=== PATIENT | female | born 1955 | race Hispanic/Latino ===

== ENCOUNTER 2018-01-06 12:36 | Emergency (ER) | payer OTHER ==
--- NOTE | 2018-01-06 13:57 | RAD REPORT ---
EXAM DESCRIPTION: RAD - Chest Pa And Lat (2 Views) - 01/06/2018 1:52 pm CLINICAL HISTORY: Fever and cough. COMPARISON: None. FINDINGS: The lungs are clear. The heart is upper limit of normal in size. No displaced fractures. IMPRESSION: No acute or concerning finding suspected.
--- NOTE | 2018-01-06 16:32 | ER ---
Nurse's Notes [facility] Name: Shantell Kenny Age: 62 yrs Sex: Female : 1955 Arrival Date: 01/06/2018 Time: 12:40 Bed 25 Private MD: Diagnosis: Influenza due to other identified influenza virus;Low back pain Presentation: 01/06 13:09 Presenting complaint: Patient states: I have a pain in my back for a few days that goes lk1 down my leg. I have had fever for 3 days and I have a cough. I feel congested except I can breath. I have horrible body aches. Transition of care: patient was not received from another setting of care. Onset of symptoms was January 03, 2018. Initial Sepsis Screen: Does the patient meet any 2 criteria? No. Patient's initial sepsis screen is negative. Does the patient have a suspected source of infection? No. Patient's initial sepsis screen is negative. Care prior to arrival: None. 13:09 Method Of Arrival: Ambulatory lk1 13:09 Acuity: JAKOB 3 lk1 13:14 Initial Sepsis Screen: Does the patient meet any 2 criteria? HR > 90 bpm. lk1 Triage Assessment: 13:11 General: Appears in no apparent distress. Behavior is calm, cooperative, appropriate lk1 for age. Pain: Complains of pain in low back area Pain radiates to right leg and left leg Pain currently is 8 out of 10 on a pain scale. Neuro: Level of Consciousness is awake, alert, obeys commands, Oriented to person, place, time, situation, Gait is steady, Speech is normal, Facial symmetry appears normal. Respiratory: Airway is patent Respiratory effort is even, unlabored, Respiratory pattern is regular, symmetrical. Respiratory: Reports cough that is non-productive. Musculoskeletal: Swelling absent. Historical: - Allergies: 13:11 No Known Allergies; lk1 - PMHx: 13:11 breast cancer; lk1 - PSHx: 13:11 bilateral bunion removal; Lumpectomy; laprascopic abdominal surgery; Appendectomy; lk1 - Immunization history:: Adult Immunizations up to date. - Social history:: Smoking status: Patient/guardian denies using tobacco. Screenin:34 Abuse screen: Denies threats or abuse. Nutritional screening: No deficits noted. mb3 Tuberculosis screening: No symptoms or risk factors identified. Fall Risk None identified. Assessment: 15:32 General: Appears in no apparent distress. comfortable, well groomed, Behavior is calm, mb3 cooperative, appropriate for age. Pain: Complains of pain in back Pain radiates to back of right leg. Neuro: No deficits noted. Cardiovascular: No deficits noted. Heart tones S1 S2 present Capillary refill < 3 seconds. Respiratory: Reports cough that is non-productive, Airway is patent Respiratory effort is even, unlabored, Respiratory pattern is regular, symmetrical, Breath sounds are clear bilaterally. GI: No signs and/or symptoms were reported involving the gastrointestinal system. : No signs and/or symptoms were reported regarding the genitourinary system. EENT: No signs and/or symptoms were reported regarding the EENT system. Musculoskeletal: No signs and/or symptoms reported regarding the musculoskeletal system. Capillary refill < 3 seconds, Range of motion: intact in all extremities. Vital Signs: 13:12 BP 124 / 73; Pulse 109; Resp 15; Temp 99.2(O); Pulse Ox 97% on R/A; Weight 63.5 kg (R); lk1 Height 5 ft. 2 in. (157.48 cm) (R); Pain 8/10; 16:40 BP 126 / 80; Pulse 106; Resp 20; Pulse Ox 98% on R/A; mb3 13:12 Body Mass Index 25.61 (63.50 kg, 157.48 cm) lk1 ED Course: 12:40 Patient arrived in ED. sb2 13:10 Triage completed. lk1 13:14 Arm band placed on right wrist. lk1 13:50 X-ray completed. Patient tolerated procedure well. Patient moved to radiology. jb2 13:51 Chest Pa And Lat (2 Views) XRAY In Process Unspecified. EDMS 15:01 Killian Bennett, ANA is Primary Nurse. mb3 15:12 Flash Eller PA is PHCP. cp 15:12 Raghu Montes MD is Attending Physician. cp 15:34 Patient has correct armband on for positive identification. Bed in low position. Call mb3 light in reach. Side rails up X 1. 16:41 No provider procedures requiring assistance completed. Patient did not have IV access mb3 during this emergency room visit. Administered Medications: No medications were administered Outcome: 16:31 Discharge ordered by . cp 16:41 Discharged to home ambulatory. mb3 16:41 Condition: stable 16:41 Discharge instructions given to patient, Instructed on discharge instructions, follow up and referral plans. medication usage, Demonstrated understanding of instructions, follow-up care, medications, Prescriptions given X 3. 16:42 Patient left the ED. mb3 Addendum: 01/10/2018 16:18 Addendum: Culture Results: Positive urine culture. Patient was not prescribed i w antibiotics at discharge. Report given to MICHAEL for further evaluation and then to food service helper for follow up with patient. Phone call Attempt #1 pt has no urinary s/s, no further action needed. Signatures: Dispatcher [employer] EDMS Rodrigue Ashley jb2 Ritu Sarah, RN RN iw Flash Eller PA PA Shikha Villanueva, ANA RN lk1 Mary Ellen Rojas sb2 Killian Bennett RN RN mb3 Corrections: (The following items were deleted from the chart) 01/06 13:50 13:50 X-ray completed. Portable x-ray completed in exam room. Patient tolerated jb2 procedure well. jb2
--- NOTE | 2018-01-06 16:33 | EDPHYS ---
Physician Documentation [facility] Name: Shantell Kenny Age: 62 yrs Sex: Female : 1955 Arrival Date: 01/06/2018 Time: 12:40 Bed 25 Private MD: ED Physician Raghu Montes HPI: 01/06 15:15 This 62 yrs old Female presents to ER via Ambulatory with complaints of Low cp Back Pain, Fever, Cough. 15:15 The patient presents with pain that is acute, with no known mechanism of injury. The cp symptoms are located in the low back. 15:15 Onset: The symptoms/episode began/occurred 3 day(s) ago. Associated signs and symptoms: cp Pertinent positives: fever, cough, Pertinent negatives: abdominal pain, chest pain, dysuria, headache, incontinence, numbness, tingling, urinary retention, weakness. 15:15 The pain does not radiate. cp Historical: - Allergies: 13:11 No Known Allergies; lk1 - PMHx: 13:11 breast cancer; lk1 - PSHx: 13:11 bilateral bunion removal; Lumpectomy; laprascopic abdominal surgery; Appendectomy; lk1 - Immunization history:: Adult Immunizations up to date. - Social history:: Smoking status: Patient/guardian denies using tobacco. ROS: 15:25 Eyes: Negative for injury, pain, redness, and discharge. cp 15:25 Constitutional: Positive for body aches, chills, Negative for fever, poor PO intake. 15:25 ENT: Negative for drainage from ear(s), ear pain, sore throat, difficulty swallowing, difficulty handling secretions. 15:25 Cardiovascular: Negative for chest pain, edema, palpitations. 15:25 Respiratory: Positive for cough, Negative for shortness of breath, wheezing. 15:25 Abdomen/GI: Negative for abdominal pain, nausea, vomiting, and diarrhea, anorexia, black/tarry stool, rectal bleeding. 15:25 Back: Positive for pain at rest, pain with movement, of the low back area. 15:25 : Negative for urinary symptoms. 15:25 Skin: Negative for cellulitis, rash. 15:25 Neuro: Negative for altered mental status, headache, numbness, weakness. 15:25 All other systems are negative. Exam: 15:27 Head/Face: Normocephalic, atraumatic. cp 15:27 Constitutional: The patient appears in no acute distress, alert, awake, non-diaphoretic, non-toxic, well developed, well nourished. 15:27 Eyes: Periorbital structures: appear normal, Conjunctiva: normal, no exudate, no injection, Sclera: no appreciated abnormality, Lids and lashes: appear normal, bilaterally. 15:27 ENT: External ear(s): are unremarkable, Ear canal(s): are normal, clear, TM's: bulging, is not appreciated, bilaterally, dullness, bilaterally, erythema, is not appreciated, bilaterally, Nose: is normal, Mouth: Lips: moist, Oral mucosa: pink and intact, moist, Posterior pharynx: is normal, airway is patent, no erythema, no exudate. 15:27 Neck: ROM/movement: is normal, is supple, without pain, no range of motions limitations, no meningismus, no nuchal rigidity. 15:27 Chest/axilla: Inspection: normal, Palpation: is normal, no crepitus, no tenderness. 15:27 Cardiovascular: Rate: tachycardic, Rhythm: regular. 15:27 Respiratory: the patient does not display signs of respiratory distress, Respirations: normal, no use of accessory muscles, no retractions, no splinting, no tachypnea, labored breathing, is not present, Breath sounds: are clear throughout, no decreased breath sounds, no stridor, no wheezing. 15:27 Abdomen/GI: Inspection: abdomen appears normal, Bowel sounds: active, all quadrants, Palpation: abdomen is soft and non-tender, in all quadrants. 15:27 Back: pain, that is mild, of the low back area, ROM is normal, vertebral tenderness, is not appreciated, muscle spasm, is not present, Straight leg raises: of both lower extremities does not illicit pain. Vital Signs: 13:12 BP 124 / 73; Pulse 109; Resp 15; Temp 99.2(O); Pulse Ox 97% on R/A; Weight 63.5 kg (R); lk1 Height 5 ft. 2 in. (157.48 cm) (R); Pain 8/10; 16:40 BP 126 / 80; Pulse 106; Resp 20; Pulse Ox 98% on R/A; mb3 13:12 Body Mass Index 25.61 (63.50 kg, 157.48 cm) lk1 MDM: 15:12 Patient medically screened. cp 15:30 Differential diagnosis: strain, sciatica, UTI, influenza, pneumonia. cp 16:30 Data reviewed: vital signs, nurses notes, lab test result(s), radiologic studies, plain cp films. 16:30 Test interpretation: by ED physician or midlevel provider: plain radiologic studies. cp Counseling: I had a detailed discussion with the patient and/or guardian regarding: the historical points, exam findings, and any diagnostic results supporting the discharge/admit diagnosis, lab results, radiology results, to return to the emergency department if symptoms worsen or persist or if there are any questions or concerns that arise at home. 01/06 12:45 Order name: Urine Culture [facility] 01/06 12:45 Order name: Urine Microscopic Only [facility] 01/06 12:45 Order name: Chest Pa And Lat (2 Views) XRAY; Complete Time: 14:39 [facility] 01/06 12:45 Order name: Urine Dipstick-Ancillary (obtain specimen); Complete Time: 15:23 [facility] 01/06 15:27 Order name: Influenza Screen (a \T\ B); Complete Time: 16:20 01/06 16:21 Interpretation: Reviewed. 01/06 15:39 Order name: Urine Dipstick--Ancillary (enter results) bd Administered Medications: No medications were administered Disposition: 01/06/18 16:31 Discharged to Home. Impression: Influenza due to other identified influenza virus, Low back pain. - Condition is Stable. - Discharge Instructions: Back Pain, Adult, Influenza, Adult, Back Exercises, [id number]. - Prescriptions for Ibuprofen 800 mg Oral Tablet - take 1 tablet by ORAL route every 8 hours As needed take with food; 30 tablet. Tessalon Perles 100 mg Oral Capsule - take 1 capsule by ORAL route every 8 hours As needed; 15 capsule. Tamiflu 75 mg Oral Capsule - take 1 tablet by ORAL route every 12 hours for 5 days; 10 tablet. - Medication Reconciliation Form, Thank You Letter, Antibiotic Education, Prescription Opioid Use form. - Follow up: Private Physician; When: 2 - 3 days; Reason: Recheck today's complaints. - Problem is new. - Symptoms are unchanged. Addendum: 01/07/2018 18:46 Co-signature as Attending Physician, Raghu Montes MD. g s Signatures: Dispatcher [employer] EDMS [address], [employer]-C [employer] Flash Eller PA PA cp Shikha Clark, RN RN lk1 Raghu Montes MD MD Killian Bennett, RN RN mb3 Corrections: (The following items were deleted from the chart) 01/06 16:32 16:31 01/06/2018 16:31 Discharged to Home. Impression: Influenza due to other cp identified influenza virus. Condition is Stable. Forms are Medication Reconciliation Form, Thank You Letter, Antibiotic Education, Prescription Opioid Use. Follow up: Private Physician; When: 2 - 3 days; Reason: Recheck today's complaints. Problem is new. Symptoms are unchanged. cp 16:42 16:32 01/06/2018 16:31 Discharged to Home. Impression: Influenza due to other mb3 identified influenza virus; Low back pain. Condition is Stable. Discharge Instructions: Influenza, Adult. Prescriptions for Ibuprofen 800 mg Oral Tablet - take 1 tablet by ORAL route every 8 hours As needed take with food; 30 tablet, Tessalon Perles 100 mg Oral Capsule - take 1 capsule by ORAL route every 8 hours As needed; 15 capsule, Tamiflu 75 mg Oral Capsule - take 1 tablet by ORAL route every 12 hours for 5 days; 10 tablet. and Forms are Medication Reconciliation Form, Thank You Letter, Antibiotic Education, Prescription Opioid Use. Follow up: Private Physician; When: 2 - 3 days; Reason: Recheck today's complaints. Problem is new. Symptoms are unchanged. cp
[2018-01-06 16:34] LABS: Urine Blood NEGATIVE (NEG); Urine Glucose NEGATIVE (NEG); Urine Protein NEGATIVE (NEG); Urine Specific Gravity 1.025 (1.005-1.030); Urine pH 5.5 (5.0-7.0)
[2018-01-06 16:34] LABS: Urine Culture Reflex Order NOT NEEDED
[2018-01-06 16:35] LABS: Urine Bacteria <20 /HPF (<20); Urine RBC <5 /HPF (NONE SEEN)
== END 2018-01-06 16:42 | disposition home or self-care (01) ==
LOC: ER 12:36
DX: J10.1 Influenza due to other identified influenza virus with other respiratory manifestations (principal)
CPT/HCPCS: 71046; 81003; 81015; 87077; 87086; 87088; 87186; 87804; 99283